=== PATIENT | male | born 1955 | race Caucasian/White ===

== ENCOUNTER 2018-04-24 14:50 | Emergency (ER) | payer MEDICAID ==
[~2018-04-24] VITALS: Ht 170.2 cm; Wt 72.0 kg
[2018-04-24 14:54] VITALS: BP 161/106
== END 2018-04-24 16:24 | disposition home or self-care (01) ==
LOC: ER 14:50
DX: S05.12XA Contusion of eyeball and orbital tissues, left eye, initial encounter (principal); Z72.89 Other problems related to lifestyle; Z88.0 Allergy status to penicillin; Y08.89XA Assault by other specified means, initial encounter; Y93.89 Activity, other specified; Y92.89 Other specified places as the place of occurrence of the external cause; Y99.8 Other external cause status
CPT/HCPCS: 70450; 99284

== ENCOUNTER 2023-01-08 10:18 | Emergency (ER) | payer MEDICAID ==
[~2023-01-08] VITALS: Ht 170.2 cm; Wt 88.6 kg
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
[2023-01-08] MEDS ORDERED: morphine 4 MG/ML inj SYRINge IV PRN (12:10)
[2023-01-08] MEDS ORDERED: ondansetron/PF 4mg/2ml inj IV ONE (12:10)
[2023-01-08] MEDS ORDERED: LIDOcaine 1% W/epiNEPHrine 1:100,000 20ml vial SQ ONE (13:15)
[2023-01-08] MEDS ORDERED: HYDROcodone/acetaminophen 10/325mg tab PO ONE (13:15)
[2023-01-08 15:13] VITALS: BP 150/90
== END 2023-01-08 15:15 | disposition home or self-care (01) ==
LOC: ER 10:19
DX: S01.81XA Laceration without foreign body of other part of head, initial encounter (principal); M48.02 Spinal stenosis, cervical region; Y08.89XA Assault by other specified means, initial encounter; Y93.89 Activity, other specified; Y92.89 Other specified places as the place of occurrence of the external cause; Y99.8 Other external cause status
CPT/HCPCS: 12013; 70450; 70486; 72125; 96374; 96375; 99285; J2270; J2405; J7030; L0172; A6449